=== PATIENT | male | born 1970 | race Caucasian/White ===

== ENCOUNTER 2017-04-20 09:55 | Inpatient (IN) | payer OTHER ==
[~2017-04-20] VITALS: Ht 182.9 cm; Wt 126.2 kg
[2017-04-20] MEDS ORDERED: FLEXERIL5 MG PO (15:09)
[2017-04-20] MEDS ORDERED: PREDNISONE PO (15:12)
[2017-04-20] MEDS ORDERED: ALEVE220 M2 PO (15:13)
[2017-04-20] MEDS ORDERED: MEN'S MULTI-VI1 EACH PO (15:14)
[2017-04-20] MEDS ORDERED: NEURONTIN100 MG PO (15:15)
[2017-04-20 18:07] VITALS: BP 121/65
[2017-04-20 21:24] LABS: CREATININE 1.3 MG/DL (0.6-1.3); GFR ESTIMATE (CALCULATED) > 59 mL/min/ (58.99-99999)
[2017-04-21 00:14] VITALS: BP 139/79
[2017-04-21 08:00] VITALS: BP 136/75
[2017-04-21 12:36] VITALS: BP 158/89
[2017-04-21 15:49] VITALS: BP 133/71
[2017-04-21 19:39] VITALS: BP 128/63
[2017-04-22 08:55] VITALS: BP 125/63
[2017-04-22 11:08] VITALS: BP 132/76
[2017-04-22 15:43] VITALS: BP 135/75
[2017-04-22 19:16] VITALS: BP 138/85
[2017-04-23 04:03] VITALS: BP 127/80
[2017-04-23 07:28] VITALS: BP 120/74
[2017-04-23 11:11] VITALS: BP 137/66
[2017-04-23 15:24] VITALS: BP 146/85
[2017-04-23 19:48] VITALS: BP 132/66
[2017-04-24 00:27] VITALS: BP 121/77
[2017-04-24 09:35] VITALS: BP 115/71
[2017-04-24 12:06] VITALS: BP 115/58
[2017-04-24 19:00] VITALS: BP 115/58
[2017-04-24 23:59] VITALS: BP 110/69
[2017-04-25 07:54] VITALS: BP 115/59
[2017-04-25] MEDS ORDERED: ENDOCET 5-3251 EACH PO (08:05)
[2017-04-25] MEDS ORDERED: CYCLOBENZAPRINE10 MG PO (08:05)
== END 2017-04-25 10:35 | disposition home or self-care (01) | DRG 520 ==
LOC: EME 09:55 → EDOF 16:42 → 5WEST 16:42 → EDOF 16:42 → ENRESERV 16:43 → 5WEST 18:00 → ENRESERV 04-24 09:59 → 5WEST 04-24 11:57 → ENRESERV 04-24 15:22 → 3EAST 04-24 19:09
PROVIDERS: Hospitalist
PROC: 0ST40ZZ Resection of Lumbosacral Disc, Open Approach (ICD-10-PCS; principal; 2017-04-24)
DX: M51.17 Intervertebral disc disorders with radiculopathy, lumbosacral region (principal); G54.8 Other nerve root and plexus disorders; K59.03 Drug induced constipation; M43.16 Spondylolisthesis, lumbar region; E66.9 Obesity, unspecified; T40.605A Adverse effect of unspecified narcotics, initial encounter; Z90.49 Acquired absence of other specified parts of digestive tract; Z68.37 Body mass index [BMI] 37.0-37.9, adult; Z83.3 Family history of diabetes mellitus; Z80.3 Family history of malignant neoplasm of breast
CPT/HCPCS: 72020; 72148; 76000; 82565; 82948; 99281; 99285; G0378; J0690; J1100; J1170; J1650; J1885; J2060; J2250; J2270; J2360; J2405; J2710; J2930; J3010; J3480; J7050; S0028